=== PATIENT | female | born 2000 | race Caucasian/White ===

== ENCOUNTER → 2021-02-27 09:37 | Outpatient (CLI) | payer OTHER, SELFPAY ==
[2021-02-27 10:04] LABS: Absolute Lymphocyte Count 1.19 X10^3/uL (0.83-4.51); Basophil# 0.01 X10^3/uL; Basophil% 0.2 % (0-1); Eosinophil# 0.04 X10^3/uL; Eosinophils% 0.7 % (0-5); Hematocrit 38.4 % (37-47); Hemoglobin 13.2 g/dL (12.0-15.0); Lymphocyte # 1.19 X10^3/ul (0.83-4.51); Lymphocyte % 21.4 % (19-41); Mean Corp Hgb Conc 34.4 g/dL (32-36); Mean Corpuscular Hgb 30.6 pg (27.0-32.0); Mean Corpuscular Volume 89.1 fL (81-99); Mean Platelet Vol. 8.6 fl (6.2-12.0); Monocyte# 0.36 X10^3/uL; Monocyte% 6.5 % (0-10); NRBC Flagged by Analyzer 0 % (0-5); Neutrophil # 3.95 X10^3/uL (2.7-7.7); Platelet Count 347 K/mm3 (150-450); RBC Distribution Width CV 12.3 % (11.6-14.6); RBC Distribution Width SD 40.7 fl (35.1-43.9); Red Blood Count 4.31 M/mm3 (4.2-5.4); White Blood Count 5.6 K/mm3 (4.4-11.0)
[2021-02-27 11:14] LABS: HIV - WCH Non-Reactive (Nonreactive); Hepatitis B Surface Antigen Non-Reactive (Nonreactive); Hepatitis C Antibody Non-Reactive (Nonreactive); Rubella IgG Reactive (Nonreactive); Syphilis Antibodies Non-reactive
[2021-02-28 21:07] LABS: Chlamydia By Nucleic Acid AMP Negative (Negative)
[2021-03-01 07:49] LABS: Gonococcus By Nucleic Acid AMP Negative (Negative)
[2021-03-03 09:50] LABS: HPV Reflexed? NOT INDICATED
== END ==
PROVIDERS: Visit Provider Student in an Organized Health Care Education/Training Program
DX: Z34.81 Encounter for supervision of other normal pregnancy, first trimester (principal); Z11.3 Encounter for screening for infections with a predominantly sexual mode of transmission
CPT/HCPCS: 36415; 85025; 86703; 86762; 86780; 86803; 87086; 87088; 87340; 87491; 87591; 88175; G0145

== ENCOUNTER → 2021-08-01 | Outpatient (CLI) | payer OTHER, SELFPAY ==
[2021-08-01 17:12] LABS: Hematocrit 34.7 % (37-47); Hemoglobin 12.1 g/dL (12.0-15.0); Mean Corp Hgb Conc 34.9 g/dL (32-36); Mean Corpuscular Hgb 32.6 pg (27.0-32.0); Mean Corpuscular Volume 93.5 fL (81-99); Mean Platelet Vol. 9.3 fl (6.2-12.0); Platelet Count 330 K/mm3 (150-450); RBC Distribution Width CV 12.6 % (11.6-14.6); RBC Distribution Width SD 43.7 fl (35.1-43.9); Red Blood Count 3.71 M/mm3 (4.2-5.4); White Blood Count 11.1 K/mm3 (4.4-11.0)
[2021-08-01 17:52] LABS: Glucose Challenge Gest 1H 50g 95 mg/dL (70-140)
== END | disposition home or self-care (01) ==
LOC: WOBLAB 16:29
PROVIDERS: Visit Provider Student in an Organized Health Care Education/Training Program
DX: Z34.83 Encounter for supervision of other normal pregnancy, third trimester (principal)
CPT/HCPCS: 36415; 82950; 85027

== ENCOUNTER → 2021-09-21 | Outpatient (CLI) | payer OTHER, SELFPAY | END | disposition home or self-care (01) | LOC: LABSPEC 13:52 | PROVIDERS: Visit Provider Student in an Organized Health Care Education/Training Program | DX: Z36.85 Encounter for antenatal screening for Streptococcus B (principal) | CPT/HCPCS: 87081 ==

== ENCOUNTER 2021-10-09 06:30 | Outpatient (CLI) | payer OTHER, SELFPAY ==
[2021-10-09 06:40] VITALS: TEMP 36.6; O2SAT 99
[2021-10-09 06:41] VITALS: BP 133/84
[2021-10-09 06:46] VITALS: BMI 33.1
[2021-10-09 06:56] VITALS: BP 136/77; PULSE 77
[2021-10-09 07:26] VITALS: BP 128/76; PULSE 73
--- NOTE | 2021-10-09 12:54 | PCM.PN.OB ---
Subjective Subjective Patient presenting with contractions. Objective Data Objective Data Vital Signs: Vital Signs Temp Pulse BP Pulse Ox 97.9 F 73 128/76 H 99 10/09/21 06:40 10/09/21 07:26 10/09/21 07:26 10/09/21 06:40 Weight: 84.822 kg Body Mass Index (BMI) 33.1 Physical Exam Narrative: 2 cm per RN unchanged with recheck NST FHR Rate Baby A Baseline: 120 Variability:: Moderate Accelerations:: 15 x 15 Decelerations:: None and Variable (Patient had one-time variable deceleration with maternal movement, heart rate to match maternal heart rate on earlier pulse ox monitoring. Patient monitored for approximately 2 hours after with reactive and reassuring heart rate) NST Reactive:: Yes Assessment & Plan (1) Uterine contractions: PLAN: 21-year-old G1, P0 at 38/5 weeks presenting with contractions. Patient not in labor, cervix 2 cm unchanged from last week and 2 cm on reevaluation. status reassuring. There was 1 time variable deceleration with maternal movement. Patient was monitored for approximately 2 hours after this with no subsequent detection of decelerations. Moderate variability and accelerations present. Discharge home with labor precautions. Patient has NST scheduled for 10/11 for routine monitoring.
== END 2021-10-09 09:55 | disposition home or self-care (01) ==
LOC: WPOUT 06:40 → WP 06:40
PROVIDERS: Referring Provider Student in an Organized Health Care Education/Training Program; Visit Provider Student in an Organized Health Care Education/Training Program
DX: O47.1 False labor at or after 37 completed weeks of gestation (principal); O36.8330 Maternal care for abnormalities of the fetal heart rate or rhythm, third trimester, not applicable or unspecified; Z3A.38 38 weeks gestation of pregnancy
CPT/HCPCS: 59050; 99218; G0378

== ENCOUNTER 2021-10-10 07:40 | Outpatient (CLI) | payer OTHER, SELFPAY ==
[2021-10-10 07:55] VITALS: BP 129/79; PULSE 75; TEMP 36.4; O2SAT 98; O2SAT 99
[2021-10-10 08:19] VITALS: BMI 32.1
[2021-10-10 10:04] VITALS: BP 143/76; PULSE 73
--- NOTE | 2021-10-10 17:56 | PCM.PN.OB ---
Subjective Subjective Patient presenting with contractions. Denies leaking of fluid, vaginal bleeding. Reports movement. Objective Data Objective Data Vital Signs: Vital Signs Temp Pulse BP Pulse Ox 97.5 F L 73 143/76 H 99 10/10/21 07:55 10/10/21 10:04 10/10/21 10:04 10/10/21 07:55 Weight: 84.822 kg Body Mass Index (BMI) 32.1 Physical Exam Narrative: 3 cm per RN NST FHR Rate Baby A Baseline: 125 Variability:: Moderate Accelerations:: 15 x 15 Decelerations:: None NST Reactive:: Yes Assessment & Plan (1) Uterine contractions: PLAN: at 38/6 weeks presenting with contractions. Patient had made some cervical change from yesterday from 2 to 3 cm. No cervical change while in triage today. Not an active labor. Patient in latent labor. Offered to monitor for additional 2 hours with recheck, patient declined. status reassuring. Patient did have one-time elevated blood pressure 140s. However has no history of elevated blood pressure. We will continue to monitor, no diagnosis of gestational hypertension at this time. Labor precautions reviewed. Patient has NST scheduled for tomorrow.
== END 2021-10-10 10:36 | disposition home or self-care (01) ==
LOC: WPOUT 07:45 → WP 07:45
PROVIDERS: Referring Provider Student in an Organized Health Care Education/Training Program; Visit Provider Student in an Organized Health Care Education/Training Program
DX: O47.1 False labor at or after 37 completed weeks of gestation (principal); Z3A.38 38 weeks gestation of pregnancy
CPT/HCPCS: 59025; 59050; 99218; G0378

== ENCOUNTER 2021-10-11 02:35 | Inpatient (IN) | payer OTHER, SELFPAY ==
[2021-10-11] VITALS (27 sets, daily range): BP systolic 118–154; BP diastolic 69–100; PULSE 65–94; RESP 18; TEMP 36.2–37.2; O2SAT 97–100; BMI 32.2
[2021-10-11 02:31] LABS: ROM Internal Control Test YES-OK TO RESULT pt. (Internal QC)
[2021-10-11 02:32] LABS: ROM Patient Test POSITIVE (Negative)
[2021-10-11] MEDS: Lactated Ringers 1,000 ML 50 ML IV (02:45)
[2021-10-11 03:00] LABS: Absolute Lymphocyte Count 1.51 X10^3/uL (0.83-4.51); Absolute Neutrophil Count 8.7 X10^3/uL (2.0-7.7); Basophil# 0.01 X10^3/uL; Basophil% 0.1 % (0-1); Eosinophil# 0.03 X10^3/uL; Eosinophils% 0.3 % (0-5); Hematocrit 39.1 % (37-47); Hemoglobin 13.5 g/dL (12.0-15.0); Lymphocyte # 1.51 X10^3/ul (0.83-4.51); Lymphocyte % 13.9 % (19-41); Mean Corp Hgb Conc 34.5 g/dL (32-36); Mean Corpuscular Volume 92.7 fL (81-99); Mean Platelet Vol. 9.7 fl (6.2-12.0); Monocyte# 0.55 X10^3/uL; Monocyte% 5.1 % (0-10); NRBC Flagged by Analyzer 0 % (0-5); Neutrophil # 8.71 X10^3/uL (2.7-7.7); Neutrophil % 80.1 % (47-70); Platelet Count 292 K/mm3 (150-450); RBC Distribution Width CV 12.3 % (11.6-14.6); RBC Distribution Width SD 41.9 fl (35.1-43.9); Red Blood Count 4.22 M/mm3 (4.2-5.4); White Blood Count 10.9 K/mm3 (4.4-11.0)
--- NOTE | 2021-10-11 07:06 | PCM.HP.BLA ---
History and Physical Date of Admission: 10/11/21 Chief complaint: Leakage of fluid History of present illness: 21-year-old G1, P0 at 39 weeks and 0 days with SIA 10/18/2021 arrives for leakage of clear fluid. Denies headache, visual changes, chest pain, shortness of breath, nausea vomit, right upper quadrant pain. Patient states good movement. Obstetrical history: G1: Current Past medical history: None Medications: vitamin Past surgical history: None Allergies: Latex Social history: Denies smoking, alcohol use, drug use Family history: Denies his DVT or PE Review of systems: Besides above pertinent positive for review of systems was performed and found to be negative General: Normal-appearing no acute distress none HEENT: Normocephalic/atraumatic no cervical adenopathy Cardiac/respiratory: No use of accessory muscles, nonlabored breathing Abdomen: Soft, nontender, gravid Pelvic exam: CE 5/80/-1, AROM for bag clear fluid Extremities: No peripheral edema normal peripheral pulses Psych: Normal affect, demeanor nonpressured speech Labs: White blood cell count 10.9 hemoglobin 13.5 hematocrit 39.1% platelets 292. ROM positive. Blood type a positive antibody negative Assessment plan: 21-year-old at 39 weeks and 0 days with SROM Admit labor and delivery CEFM GBS negative Routine orders Anesthesia see
[2021-10-11] MEDS: Lactated Ringers 1,000 ML 200 ML IV (12:47)
[2021-10-11] MEDS: Oxytocin 30 units/NS 500 ml 30 UNITS/500 ML IV.SOLN 334 UNITS IV (15:08)
[2021-10-11] MEDS: Carboprost Tromethamine 250 MCG/ML Ampul IM (15:13)
--- NOTE | 2021-10-11 15:29 | EX.PCM.OBRPT ---
Vaginal Delivery Operative Information Date of Procedure: 10/11/21 Findings Description of Procedure: Normal spontaneous vaginal delivery of a viable female , vertex NILS. Head and shoulders delivered with ease. Cord cut and clamped. Baby handed off to patient. Placenta delivered via cord traction and fundal massage. First-degree midline perineal laceration, bilateral labial lacerations noted and repaired in typical fashion. Shortened second stage, prophylactic Hemabate IM given. EBL 350 cc Apgars 9/9
[2021-10-12 01:15] VITALS: BP 119/66; PULSE 95; RESP 16; TEMP 36.9; O2SAT 95
[2021-10-12 05:00] VITALS: BP 119/73; PULSE 93; RESP 18; TEMP 36.9; O2SAT 98
--- NOTE | 2021-10-12 07:17 | DCINST_ITS ---
Discharge Instructions Diet Discharge Diet: No restrictions Activity Discharge Activity: Return to Normal Activity, May Drive and May Shower May resume sexual activity in: 4-6 weeks Weight Bearing Status: Weight bearing as tolerated Dressing / Incision Call your doctor if your incision/area has: Continuous Slow Oozing Call your doctor if you observe: Fever of 101 or Higher, Shortness of breath and Chest pain Follow Up Care Please Follow Up With: Waylon Swain MD When: 4 to 6 weeks Test Results: Test results from this visit will be discussed in further detail at your follow- up appointment, if applicable. Discharge Plan Admission Admit Date/Time: 10/11/21 02:35 Attending Provider: Waylon Swain Primary Care Provider: Care Physician,Andreina Primary Discharge Orders/Prescriptions Prescriptions: No Action 1 mg Tablet 1 tab PO DAILY Referrals / Follow Up: Care Physician,No Primary [Primary Care Provider] - Disposition Discharge Orders: Discharge Patient (Routine); Ordered 10/12/21 Ordered By: Dr. Waylon Swain
--- NOTE | 2021-10-12 07:17 | PCM.PN.OB ---
Subjective Subjective No overnight complaints Objective Data Objective Data Vital Signs: Vital Signs Temp Pulse Resp BP Pulse Ox O2 Del Method 98.4 F 95 16 119/66 95 Room Air 10/12/21 01:15 10/12/21 01:15 10/12/21 01:15 10/12/21 01:15 10/12/21 01:15 10/12/21 01:15 Oxygen Delivery Method Room Air Weight: 188 lb Body Mass Index (BMI) 32.2 Intake & Output: Intake and Output for Last 24 Hours 10/10/21 10/11/21 10/12/21 23:59 23:59 23:59 Intake Total Balance Lab / Micro Data Result Diagrams: 10/11/21 02:45 Micro: Microbiology 10/11/21 02:45 Nasal Secretion SARS-CoV-2 Antigen (Rapid) - Final Physical Exam Const alert, oriented x3, no apparent distress, average body habitus, healthy appearing and well nourished HEENT normocephalic Eyes PERRL Neck full ROM Resp normal respiratory effort, no retractions and no use of accessory muscles GI GI Narrative: Soft, nontender, uterus firm below umbilicus Extremity normal to inspection, full ROM and no clubbing, cyanosis or edema Neuro moves all extremities and no focal motor deficits Psych mental status grossly normal, affect normal, speech normal and activity/motor behavior normal Assessment & Plan (1) Vaginal delivery: PLAN: day 1. Breast-feeding. Pain well controlled. Okay to discharge home if okay with database administration associate
[2021-10-12 08:24] VITALS: BP 107/58; PULSE 94; RESP 16; TEMP 36.3
[2021-10-12 15:26] VITALS: BP 113/62; PULSE 89; RESP 16; TEMP 36.9; O2SAT 98
== END 2021-10-12 17:25 | disposition home or self-care (01) | DRG 807 ==
LOC: WPOUT 02:35 → WP 02:35
PROVIDERS: Student in an Organized Health Care Education/Training Program; Admitting Provider Obstetrics & Gynecology; Visit Provider Obstetrics & Gynecology
DX: O42.92 Full-term premature rupture of membranes, unspecified as to length of time between rupture and onset of labor (principal); Z37.0 Single live birth; O70.0 First degree perineal laceration during delivery; Z3A.39 39 weeks gestation of pregnancy
CPT/HCPCS: 59025; 59050; 84112; 85025; 86850; 86900; 86901; 87426; 99218; J7120; G0378